=== PATIENT | male | born 1955 | race Caucasian/White ===

== ENCOUNTER 2021-03-04 15:46 | Inpatient (IN) ==
[2021-03-05] MEDS ORDERED: Dextrose Gel 15 GM/37.5 ML TUBE PO PRN ×2 (15:21)
[2021-03-05] MEDS ORDERED: D5% in Water 1,000 ML IVC PRN (15:21)
[2021-03-05] MEDS ORDERED: *HR* Dextrose 50 % in Water (Vial) 50 ML VIAL IVP PRN (15:21)
[2021-03-05] MEDS: Insulin LISPRO 300 UNITS/3 ML VIAL SUBQ SCH ×2 (17:58→22:24)
[2021-03-05] MEDS: diazePAM 2 MG TABLET PO SCH (22:23)
[2021-03-05] MEDS: Metoprolol XL (24 HR) Succ 25 MG TAB.ER.24H PO SCH (22:23)
[2021-03-05] MEDS: Gabapentin 100 MG CAPSULE PO SCH (22:23)
[2021-03-05] MEDS: QUEtiapine Fumarate 25 MG TABLET PO SCH (22:23)
[2021-03-05] MEDS: Cefdinir 300 MG CAPSULE PO SCH (22:23)
[2021-03-06 05:17] LABS: Basophils % 0.1 %; Eosinophils % 0.1 %; Hematocrit 41.8 % (37.5-50.1); Hemoglobin 13.5 g/dL (12.9-16.9); Immature Granulocytes % 0.8 % (0-4); Lymphocytes # 1.4 K/mcL (0.6-4.6); Lymphocytes % 9.3 %; Mean Corpuscular HGB Conc 32.3 g/dL (31.6-35.5); Mean Corpuscular Hemoglobin 26.9 pg (28.0-33.3); Mean Corpuscular Volume 83.4 fL (83.0-100.0); Mean Platelet Volume 12.9 fL (9.4-12.4); Monocytes # 1.2 K/mcL (0.0-1.3); Monocytes % 8.1 %; Neutrophils # 11.8 K/mcL (1.6-8.9); Platelet Count 117 K/mcL (140-400); Red Blood Count 5.01 M/mcL (4.19-5.50); Red Cell Distribution Width 15.6 % (11.5-14.5); Segmented Neutrophils % 81.6 %; White Blood Count 14.5 K/mcL (4.3-11.1)
[2021-03-06 05:33] LABS: BUN/Creatinine Ratio 33 (6-26); Blood Urea Nitrogen 41 mg/dL (8-23); Calcium 8.6 mg/dL (8.6-10.3); Carbon Dioxide 24 mEq/L (23-29); Chloride 104 mEq/L (98-107); Glucose 169 mg/dL (70-105); Osmolality,Calculated 296 (280-300); Potassium 4.3 mEq/L (3.5-5.1); Sodium 136 mEq/L (136-145); eGFR For African Americans > 60 (> 60); eGFR For Non-African Americans 59 (> 60)
[2021-03-06] MEDS: *HR* Enoxaparin 40 MG/0.4 ML SYRINGE SQ SCH (06:21)
[2021-03-06] MEDS: allopurinoL 100 MG TABLET PO SCH (08:18)
[2021-03-06] MEDS: Cholecalciferol (D-3) 1,000 UNIT (25MCG) TABLET PO SCH (08:18)
[2021-03-06] MEDS: dexAMETHasone 4 MG TABLET PO SCH (08:19)
[2021-03-06] MEDS: Multivit/Ca/Min/Fe/FA 1 TAB TABLET PO SCH (08:19)
[2021-03-06] MEDS: Cefdinir 300 MG CAPSULE PO SCH ×2 (08:19→21:34)
[2021-03-06] MEDS: Metoprolol XL (24 HR) Succ 25 MG TAB.ER.24H PO SCH ×2 (08:19→21:34)
[2021-03-06] MEDS: Finasteride 5 MG TABLET PO SCH (08:19)
[2021-03-06] MEDS: lisinopriL 20 MG TABLET PO SCH (08:19)
[2021-03-06] MEDS: QUEtiapine Fumarate 25 MG TABLET PO SCH ×2 (08:19→21:34)
[2021-03-06] MEDS: diazePAM 2 MG TABLET PO SCH ×2 (08:20→21:34)
[2021-03-06] MEDS: Insulin LISPRO 300 UNITS/3 ML VIAL SUBQ SCH ×4 (12:32→21:35)
[2021-03-06] MEDS: Gabapentin 100 MG CAPSULE PO SCH (21:34)
[2021-03-07] MEDS: *HR* Enoxaparin 40 MG/0.4 ML SYRINGE SQ SCH (04:20)
[2021-03-07] MEDS: QUEtiapine Fumarate 25 MG TABLET PO SCH ×2 (08:32→20:17)
[2021-03-07] MEDS: dexAMETHasone 4 MG TABLET PO SCH (08:32)
[2021-03-07] MEDS: Multivit/Ca/Min/Fe/FA 1 TAB TABLET PO SCH (08:32)
[2021-03-07] MEDS: Finasteride 5 MG TABLET PO SCH (08:32)
[2021-03-07] MEDS: diazePAM 2 MG TABLET PO SCH ×2 (08:32→20:17)
[2021-03-07] MEDS: Cholecalciferol (D-3) 1,000 UNIT (25MCG) TABLET PO SCH (08:32)
[2021-03-07] MEDS: allopurinoL 100 MG TABLET PO SCH (08:32)
[2021-03-07] MEDS: Cefdinir 300 MG CAPSULE PO SCH ×2 (08:32→20:17)
[2021-03-07] MEDS: lisinopriL 20 MG TABLET PO SCH (08:32)
[2021-03-07] MEDS: Metoprolol XL (24 HR) Succ 25 MG TAB.ER.24H PO SCH ×2 (08:32→20:17)
[2021-03-07] MEDS: Insulin LISPRO 300 UNITS/3 ML VIAL SUBQ SCH ×4 (08:34→20:19)
[2021-03-07] MEDS: Gabapentin 100 MG CAPSULE PO SCH (20:17)
[2021-03-08] MEDS: *HR* Enoxaparin 40 MG/0.4 ML SYRINGE SQ SCH (05:16)
[2021-03-08] MEDS: Cholecalciferol (D-3) 1,000 UNIT (25MCG) TABLET PO SCH (08:22)
[2021-03-08] MEDS: Metoprolol XL (24 HR) Succ 25 MG TAB.ER.24H PO SCH ×2 (08:22→19:58)
[2021-03-08] MEDS: dexAMETHasone 4 MG TABLET PO SCH (08:22)
[2021-03-08] MEDS: diazePAM 2 MG TABLET PO SCH ×2 (08:23→19:57)
[2021-03-08] MEDS: Finasteride 5 MG TABLET PO SCH (08:23)
[2021-03-08] MEDS: Multivit/Ca/Min/Fe/FA 1 TAB TABLET PO SCH (08:23)
[2021-03-08] MEDS: lisinopriL 20 MG TABLET PO SCH (08:23)
[2021-03-08] MEDS: allopurinoL 100 MG TABLET PO SCH (08:23)
[2021-03-08] MEDS: QUEtiapine Fumarate 25 MG TABLET PO SCH ×2 (08:23→19:57)
[2021-03-08] MEDS: Insulin LISPRO 300 UNITS/3 ML VIAL SUBQ SCH ×4 (08:24→19:58)
[2021-03-08] MEDS: Gabapentin 100 MG CAPSULE PO SCH (19:57)
[2021-03-09] MEDS: *HR* Enoxaparin 40 MG/0.4 ML SYRINGE SQ SCH (04:43)
[2021-03-09 05:18] LABS: Basophils % 0.2 %; Eosinophils % 0.1 %; Hematocrit 40.7 % (37.5-50.1); Hemoglobin 13.2 g/dL (12.9-16.9); Lymphocytes # 1.7 K/mcL (0.6-4.6); Mean Corpuscular HGB Conc 32.4 g/dL (31.6-35.5); Mean Corpuscular Hemoglobin 27.2 pg (28.0-33.3); Mean Corpuscular Volume 83.9 fL (83.0-100.0); Mean Platelet Volume 13.3 fL (9.4-12.4); Monocytes # 1.7 K/mcL (0.0-1.3); Neutrophils # 15.5 K/mcL (1.6-8.9); Red Blood Count 4.85 M/mcL (4.19-5.50); Segmented Neutrophils % 80.7 %; White Blood Count 19.2 K/mcL (4.3-11.1)
[2021-03-09 05:28] LABS: Platelet Count 119 K/mcL (140-400)
[2021-03-09 05:30] LABS: BUN/Creatinine Ratio 32 (6-26); Blood Urea Nitrogen 46 mg/dL (8-23); Calcium 8.8 mg/dL (8.6-10.3); Carbon Dioxide 23 mEq/L (23-29); Chloride 106 mEq/L (98-107); Glucose 228 mg/dL (70-105); Osmolality,Calculated 301 (280-300); Potassium 4.7 mEq/L (3.5-5.1); Sodium 136 mEq/L (136-145); eGFR For African Americans > 60 (> 60); eGFR For Non-African Americans 50 (> 60)
[2021-03-09] MEDS: Insulin LISPRO 300 UNITS/3 ML VIAL SUBQ SCH ×4 (08:22→20:01)
[2021-03-09] MEDS: Metoprolol XL (24 HR) Succ 25 MG TAB.ER.24H PO SCH ×2 (08:23→20:00)
[2021-03-09] MEDS: Cholecalciferol (D-3) 1,000 UNIT (25MCG) TABLET PO SCH (08:23)
[2021-03-09] MEDS: Multivit/Ca/Min/Fe/FA 1 TAB TABLET PO SCH (08:23)
[2021-03-09] MEDS: dexAMETHasone 4 MG TABLET PO SCH (08:23)
[2021-03-09] MEDS: diazePAM 2 MG TABLET PO SCH ×2 (08:23→20:00)
[2021-03-09] MEDS: lisinopriL 20 MG TABLET PO SCH (08:23)
[2021-03-09] MEDS: QUEtiapine Fumarate 25 MG TABLET PO SCH ×2 (08:24→19:59)
[2021-03-09] MEDS: Finasteride 5 MG TABLET PO SCH (08:24)
[2021-03-09] MEDS: allopurinoL 100 MG TABLET PO SCH (08:24)
[2021-03-09 17:43] LABS: Bilirubin,Urine Negative (Negative); Blood,Urine Negative (Negative); Clarity,Urine Clear (Clear); Color,Urine Yellow (Yellow); Glucose,Urine (UA) 500 mg/dL (Normal); Ketones,Urine Negative (Negative); Leukocyte Esterase,Urine Negative (Negative); Nitrite,Urine Negative (Negative); PH,Urine 5.5 pH Units (5.0-8.0); Protein,Urine Negative (Neg-Trace); Specific Gravity,Urine 1.025 (1.010-1.025); Urobilinogen,Urine Normal (Normal)
[2021-03-09 17:47] LABS: WBC,Urine 0-3 per hpf (0-3)
[2021-03-09 17:48] LABS: Bacteria,Urine Few per hpf (None-Few); Hyaline Casts,Urine Few per lpf (None Seen)
[2021-03-09] MEDS: Gabapentin 100 MG CAPSULE PO SCH (19:59)
[2021-03-10] MEDS: *HR* Enoxaparin 40 MG/0.4 ML SYRINGE SQ SCH (03:29)
[2021-03-10 04:48] LABS: Hematocrit 37.7 % (37.5-50.1); Hemoglobin 12.4 g/dL (12.9-16.9); Mean Corpuscular HGB Conc 32.9 g/dL (31.6-35.5); Mean Corpuscular Hemoglobin 27.4 pg (28.0-33.3); Mean Corpuscular Volume 83.4 fL (83.0-100.0); Mean Platelet Volume 12.7 fL (9.4-12.4); Platelet Count 133 K/mcL (140-400); Red Blood Count 4.52 M/mcL (4.19-5.50); White Blood Count 17.1 K/mcL (4.3-11.1)
[2021-03-10 04:59] LABS: Calcium 8.7 mg/dL (8.6-10.3); Magnesium 1.5 mg/dL (1.6-2.6); Potassium 4.6 mEq/L (3.5-5.1)
[2021-03-10] MEDS: QUEtiapine Fumarate 25 MG TABLET PO SCH ×2 (09:26→20:41)
[2021-03-10] MEDS: Multivit/Ca/Min/Fe/FA 1 TAB TABLET PO SCH (09:26)
[2021-03-10] MEDS: Finasteride 5 MG TABLET PO SCH (09:26)
[2021-03-10] MEDS: diazePAM 2 MG TABLET PO SCH ×2 (09:26→20:41)
[2021-03-10] MEDS: Metoprolol XL (24 HR) Succ 25 MG TAB.ER.24H PO SCH ×2 (09:26→20:42)
[2021-03-10] MEDS: dexAMETHasone 4 MG TABLET PO SCH (09:28)
[2021-03-10] MEDS: lisinopriL 20 MG TABLET PO SCH (09:28)
[2021-03-10] MEDS: allopurinoL 100 MG TABLET PO SCH (09:28)
[2021-03-10] MEDS: Cholecalciferol (D-3) 1,000 UNIT (25MCG) TABLET PO SCH (09:29)
[2021-03-10] MEDS: Insulin LISPRO 300 UNITS/3 ML VIAL SUBQ SCH ×4 (09:29→22:33)
[2021-03-10] MEDS: Magnesium Oxide 400 MG TABLET PO SCH (12:40)
[2021-03-10] MEDS: Gabapentin 100 MG CAPSULE PO SCH (20:41)
[2021-03-11] MEDS: *HR* Enoxaparin 40 MG/0.4 ML SYRINGE SQ SCH (06:34)
[2021-03-11] MEDS: lisinopriL 20 MG TABLET PO SCH (08:25)
[2021-03-11] MEDS: Finasteride 5 MG TABLET PO SCH (08:25)
[2021-03-11] MEDS: Magnesium Oxide 400 MG TABLET PO SCH (08:25)
[2021-03-11] MEDS: diazePAM 2 MG TABLET PO SCH ×2 (08:25→20:10)
[2021-03-11] MEDS: Multivit/Ca/Min/Fe/FA 1 TAB TABLET PO SCH (08:25)
[2021-03-11] MEDS: QUEtiapine Fumarate 25 MG TABLET PO SCH ×2 (08:25→20:09)
[2021-03-11] MEDS: Cholecalciferol (D-3) 1,000 UNIT (25MCG) TABLET PO SCH (08:25)
[2021-03-11] MEDS: Insulin LISPRO 300 UNITS/3 ML VIAL SUBQ SCH ×4 (08:26→20:10)
[2021-03-11] MEDS: Metoprolol XL (24 HR) Succ 25 MG TAB.ER.24H PO SCH ×2 (08:26→20:09)
[2021-03-11] MEDS: dexAMETHasone 4 MG TABLET PO SCH (08:26)
[2021-03-11] MEDS: allopurinoL 100 MG TABLET PO SCH (08:26)
[2021-03-11] MEDS: Gabapentin 100 MG CAPSULE PO SCH (20:09)
[2021-03-12] MEDS: *HR* Enoxaparin 40 MG/0.4 ML SYRINGE SQ SCH (06:23)
[2021-03-12] MEDS: lisinopriL 20 MG TABLET PO SCH (09:56)
[2021-03-12] MEDS: diazePAM 2 MG TABLET PO SCH ×2 (09:56→19:50)
[2021-03-12] MEDS: Cholecalciferol (D-3) 1,000 UNIT (25MCG) TABLET PO SCH (09:56)
[2021-03-12] MEDS: Metoprolol XL (24 HR) Succ 25 MG TAB.ER.24H PO SCH ×2 (09:56→19:51)
[2021-03-12] MEDS: Insulin LISPRO 300 UNITS/3 ML VIAL SUBQ SCH ×4 (09:56→19:49)
[2021-03-12] MEDS: Finasteride 5 MG TABLET PO SCH (09:56)
[2021-03-12] MEDS: QUEtiapine Fumarate 25 MG TABLET PO SCH ×2 (09:57→19:50)
[2021-03-12] MEDS: Multivit/Ca/Min/Fe/FA 1 TAB TABLET PO SCH (09:57)
[2021-03-12] MEDS: Magnesium Oxide 400 MG TABLET PO SCH (09:57)
[2021-03-12] MEDS: allopurinoL 100 MG TABLET PO SCH (09:57)
[2021-03-12] MEDS: Gabapentin 100 MG CAPSULE PO SCH (19:50)
[2021-03-13] MEDS: *HR* Enoxaparin 40 MG/0.4 ML SYRINGE SQ SCH (05:07)
[2021-03-13] MEDS: Insulin LISPRO 300 UNITS/3 ML VIAL SUBQ SCH ×4 (08:37→21:07)
[2021-03-13] MEDS: Metoprolol XL (24 HR) Succ 25 MG TAB.ER.24H PO SCH ×2 (08:38→21:07)
[2021-03-13] MEDS: Cholecalciferol (D-3) 1,000 UNIT (25MCG) TABLET PO SCH (08:38)
[2021-03-13] MEDS: Finasteride 5 MG TABLET PO SCH (08:38)
[2021-03-13] MEDS: allopurinoL 100 MG TABLET PO SCH (08:38)
[2021-03-13] MEDS: Magnesium Oxide 400 MG TABLET PO SCH (08:38)
[2021-03-13] MEDS: QUEtiapine Fumarate 25 MG TABLET PO SCH ×2 (08:39→21:06)
[2021-03-13] MEDS: diazePAM 2 MG TABLET PO SCH ×2 (08:39→21:06)
[2021-03-13] MEDS: Multivit/Ca/Min/Fe/FA 1 TAB TABLET PO SCH (08:39)
[2021-03-13] MEDS: lisinopriL 20 MG TABLET PO SCH (08:39)
[2021-03-13] MEDS: GlipiZIDE 5 MG TABLET PO SCH ×2 (12:38→16:48)
[2021-03-13] MEDS: Gabapentin 100 MG CAPSULE PO SCH (21:06)
[2021-03-14] MEDS: *HR* Enoxaparin 40 MG/0.4 ML SYRINGE SQ SCH (05:15)
[2021-03-14 06:58] LABS: Hematocrit 37.2 % (37.5-50.1); Mean Corpuscular HGB Conc 32.3 g/dL (31.6-35.5); Mean Corpuscular Hemoglobin 27.2 pg (28.0-33.3); Mean Corpuscular Volume 84.4 fL (83.0-100.0); Mean Platelet Volume 10.5 fL (9.4-12.4); Platelet Count 82 K/mcL (140-400); Red Blood Count 4.41 M/mcL (4.19-5.50); Red Cell Distribution Width 16.5 % (11.5-14.5); White Blood Count 10.7 K/mcL (4.3-11.1)
[2021-03-14 07:11] LABS: Albumin 2.7 g/dL (3.5-5.7); Albumin/Globulin Ratio 1.1 (1.1-2.2); Bilirubin,Total 0.4 mg/dL (0.3-1.0); Globulin 2.4 g/dL (2.4-3.5); Magnesium 1.7 mg/dL (1.6-2.6); Potassium 4.3 mEq/L (3.5-5.1); Total Protein 5.1 g/dL (6.4-8.9)
[2021-03-14] MEDS: Insulin LISPRO 300 UNITS/3 ML VIAL SUBQ SCH ×4 (07:55→21:29)
[2021-03-14] MEDS: lisinopriL 20 MG TABLET PO SCH (09:04)
[2021-03-14] MEDS: GlipiZIDE 5 MG TABLET PO SCH ×2 (09:04→16:34)
[2021-03-14] MEDS: Metoprolol XL (24 HR) Succ 25 MG TAB.ER.24H PO SCH ×2 (09:04→21:36)
[2021-03-14] MEDS: QUEtiapine Fumarate 25 MG TABLET PO SCH ×2 (09:04→21:35)
[2021-03-14] MEDS: diazePAM 2 MG TABLET PO SCH ×2 (09:04→21:37)
[2021-03-14] MEDS: Magnesium Oxide 400 MG TABLET PO SCH (09:04)
[2021-03-14] MEDS: Cholecalciferol (D-3) 1,000 UNIT (25MCG) TABLET PO SCH (09:04)
[2021-03-14] MEDS: Finasteride 5 MG TABLET PO SCH (09:04)
[2021-03-14] MEDS: Multivit/Ca/Min/Fe/FA 1 TAB TABLET PO SCH (09:04)
[2021-03-14] MEDS: allopurinoL 100 MG TABLET PO SCH (09:05)
[2021-03-14] MEDS: Gabapentin 100 MG CAPSULE PO SCH (21:36)
[2021-03-15] MEDS: Insulin LISPRO 300 UNITS/3 ML VIAL SUBQ SCH ×4 (08:08→20:49)
[2021-03-15] MEDS: Multivit/Ca/Min/Fe/FA 1 TAB TABLET PO SCH (08:09)
[2021-03-15] MEDS: Magnesium Oxide 400 MG TABLET PO SCH (08:09)
[2021-03-15] MEDS: GlipiZIDE 5 MG TABLET PO SCH ×2 (08:09→17:03)
[2021-03-15] MEDS: Metoprolol XL (24 HR) Succ 25 MG TAB.ER.24H PO SCH ×2 (08:09→19:35)
[2021-03-15] MEDS: Cholecalciferol (D-3) 1,000 UNIT (25MCG) TABLET PO SCH (08:09)
[2021-03-15] MEDS: allopurinoL 100 MG TABLET PO SCH (08:09)
[2021-03-15] MEDS: Finasteride 5 MG TABLET PO SCH (08:09)
[2021-03-15] MEDS: lisinopriL 20 MG TABLET PO SCH (08:09)
[2021-03-15] MEDS: diazePAM 2 MG TABLET PO SCH ×2 (08:09→19:34)
[2021-03-15] MEDS: QUEtiapine Fumarate 25 MG TABLET PO SCH ×2 (08:10→19:34)
[2021-03-15] MEDS: Nystatin POWDER 30 GM BOTTLE TP SCH ×2 (14:42→19:37)
[2021-03-15] MEDS: Gabapentin 100 MG CAPSULE PO SCH (19:34)
[2021-03-16] MEDS: Insulin LISPRO 300 UNITS/3 ML VIAL SUBQ SCH ×4 (08:11→21:50)
[2021-03-16] MEDS: lisinopriL 20 MG TABLET PO SCH (08:12)
[2021-03-16] MEDS: allopurinoL 100 MG TABLET PO SCH (08:12)
[2021-03-16] MEDS: GlipiZIDE 5 MG TABLET PO SCH ×2 (08:12→16:48)
[2021-03-16] MEDS: Multivit/Ca/Min/Fe/FA 1 TAB TABLET PO SCH (08:12)
[2021-03-16] MEDS: Magnesium Oxide 400 MG TABLET PO SCH (08:12)
[2021-03-16] MEDS: Cholecalciferol (D-3) 1,000 UNIT (25MCG) TABLET PO SCH (08:12)
[2021-03-16] MEDS: QUEtiapine Fumarate 25 MG TABLET PO SCH ×2 (08:12→22:08)
[2021-03-16] MEDS: Finasteride 5 MG TABLET PO SCH (08:12)
[2021-03-16] MEDS: Metoprolol XL (24 HR) Succ 25 MG TAB.ER.24H PO SCH ×2 (08:13→22:08)
[2021-03-16] MEDS: Nystatin POWDER 30 GM BOTTLE TP SCH ×2 (08:13→22:13)
[2021-03-16] MEDS: diazePAM 2 MG TABLET PO SCH ×2 (08:13→22:07)
[2021-03-16 09:42] LABS: Basophils % 0.1 %; Eosinophils # 0.3 K/mcL (0.0-0.6); Hematocrit 37.6 % (37.5-50.1); Hemoglobin 12.1 g/dL (12.9-16.9); Immature Granulocytes % 0.7 % (0-4); Lymphocytes # 1.3 K/mcL (0.6-4.6); Lymphocytes % 8.7 %; Mean Corpuscular HGB Conc 32.2 g/dL (31.6-35.5); Mean Corpuscular Hemoglobin 27.5 pg (28.0-33.3); Mean Corpuscular Volume 85.5 fL (83.0-100.0); Mean Platelet Volume 11.5 fL (9.4-12.4); Monocytes # 1.2 K/mcL (0.0-1.3); Monocytes % 8.4 %; Neutrophils # 11.7 K/mcL (1.6-8.9); Platelet Count 91 K/mcL (140-400); Red Cell Distribution Width 16.6 % (11.5-14.5); Segmented Neutrophils % 80.1 %; White Blood Count 14.6 K/mcL (4.3-11.1)
[2021-03-16 09:55] LABS: Calcium 8.3 mg/dL (8.6-10.3); Potassium 4.6 mEq/L (3.5-5.1)
[2021-03-16] MEDS: Doxycycline 100 MG CAPSULE PO SCH ×2 (11:44→22:10)
[2021-03-16] MEDS: Gabapentin 100 MG CAPSULE PO SCH (22:08)
[2021-03-17 05:08] LABS: Basophils % 0.1 %; Eosinophils # 0.5 K/mcL (0.0-0.6); Eosinophils % 3.3 %; Hematocrit 34.5 % (37.5-50.1); Hemoglobin 11.1 g/dL (12.9-16.9); Immature Granulocytes % 0.7 % (0-4); Lymphocytes # 2.3 K/mcL (0.6-4.6); Lymphocytes % 17.2 %; Mean Corpuscular HGB Conc 32.2 g/dL (31.6-35.5); Mean Corpuscular Hemoglobin 27.3 pg (28.0-33.3); Mean Corpuscular Volume 84.8 fL (83.0-100.0); Mean Platelet Volume 11.3 fL (9.4-12.4); Monocytes # 1.7 K/mcL (0.0-1.3); Monocytes % 12.6 %; Neutrophils # 8.9 K/mcL (1.6-8.9); Platelet Count 100 K/mcL (140-400); Red Blood Count 4.07 M/mcL (4.19-5.50); Red Cell Distribution Width 16.8 % (11.5-14.5); Segmented Neutrophils % 66.1 %; White Blood Count 13.5 K/mcL (4.3-11.1)
[2021-03-17 05:26] LABS: Potassium 4.2 mEq/L (3.5-5.1)
[2021-03-17] MEDS: Insulin LISPRO 300 UNITS/3 ML VIAL SUBQ SCH ×4 (08:04→20:30)
[2021-03-17] MEDS: Cholecalciferol (D-3) 1,000 UNIT (25MCG) TABLET PO SCH (08:06)
[2021-03-17] MEDS: GlipiZIDE 5 MG TABLET PO SCH ×2 (08:07→17:02)
[2021-03-17] MEDS: Finasteride 5 MG TABLET PO SCH (08:07)
[2021-03-17] MEDS: Nystatin POWDER 30 GM BOTTLE TP SCH ×2 (08:07→20:34)
[2021-03-17] MEDS: diazePAM 2 MG TABLET PO SCH ×2 (08:07→20:31)
[2021-03-17] MEDS: Multivit/Ca/Min/Fe/FA 1 TAB TABLET PO SCH (08:07)
[2021-03-17] MEDS: Metoprolol XL (24 HR) Succ 25 MG TAB.ER.24H PO SCH ×2 (08:07→20:32)
[2021-03-17] MEDS: allopurinoL 100 MG TABLET PO SCH (08:07)
[2021-03-17] MEDS: Magnesium Oxide 400 MG TABLET PO SCH (08:07)
[2021-03-17] MEDS: QUEtiapine Fumarate 25 MG TABLET PO SCH ×2 (08:07→20:31)
[2021-03-17] MEDS: Doxycycline 100 MG CAPSULE PO SCH (08:07)
[2021-03-17] MEDS: lisinopriL 20 MG TABLET PO SCH (08:08)
[2021-03-17] MEDS: 0.9 % Sodium Chloride 1,000 ML IVC SCH ×2 (12:15→22:18)
[2021-03-17] MEDS: Vancomycin Oral Soln 125 MG/2.5 ML UDC PO SCH ×2 (17:02→20:33)
[2021-03-17] MEDS: Gabapentin 100 MG CAPSULE PO SCH (20:32)
[2021-03-18 04:45] LABS: Basophils % 0.3 %; Eosinophils # 0.5 K/mcL (0.0-0.6); Eosinophils % 5.3 %; Hematocrit 32.9 % (37.5-50.1); Hemoglobin 10.5 g/dL (12.9-16.9); Lymphocytes % 22.4 %; Mean Corpuscular HGB Conc 31.9 g/dL (31.6-35.5); Mean Corpuscular Hemoglobin 27.1 pg (28.0-33.3); Mean Platelet Volume 11.4 fL (9.4-12.4); Monocytes # 1.2 K/mcL (0.0-1.3); Monocytes % 13.1 %; Neutrophils # 5.3 K/mcL (1.6-8.9); Platelet Count 109 K/mcL (140-400); Red Blood Count 3.87 M/mcL (4.19-5.50); Segmented Neutrophils % 57.9 %; White Blood Count 9.1 K/mcL (4.3-11.1)
[2021-03-18 05:01] LABS: Calcium 7.6 mg/dL (8.6-10.3); Potassium 4.1 mEq/L (3.5-5.1)
[2021-03-18] MEDS: Vancomycin Oral Soln 125 MG/2.5 ML UDC PO SCH ×4 (07:59→20:25)
[2021-03-18] MEDS: Insulin LISPRO 300 UNITS/3 ML VIAL SUBQ SCH ×4 (08:01→20:26)
[2021-03-18] MEDS: levoFLOXacin 500 MG TABLET PO SCH (08:02)
[2021-03-18] MEDS: Lactobacillus 1 EACH CAP.SPRINK PO SCH (08:02)
[2021-03-18] MEDS: Magnesium Oxide 400 MG TABLET PO SCH (08:02)
[2021-03-18] MEDS: QUEtiapine Fumarate 25 MG TABLET PO SCH ×2 (08:02→20:25)
[2021-03-18] MEDS: Cholecalciferol (D-3) 1,000 UNIT (25MCG) TABLET PO SCH (08:02)
[2021-03-18] MEDS: Finasteride 5 MG TABLET PO SCH (08:02)
[2021-03-18] MEDS: diazePAM 2 MG TABLET PO SCH ×2 (08:02→20:25)
[2021-03-18] MEDS: lisinopriL 20 MG TABLET PO SCH (08:02)
[2021-03-18] MEDS: GlipiZIDE 5 MG TABLET PO SCH ×2 (08:02→17:14)
[2021-03-18] MEDS: Metoprolol XL (24 HR) Succ 25 MG TAB.ER.24H PO SCH ×2 (08:03→20:25)
[2021-03-18] MEDS: Multivit/Ca/Min/Fe/FA 1 TAB TABLET PO SCH (08:03)
[2021-03-18] MEDS: Nystatin POWDER 30 GM BOTTLE TP SCH ×2 (08:03→20:26)
[2021-03-18] MEDS: allopurinoL 100 MG TABLET PO SCH (08:03)
[2021-03-18] MEDS: 0.9 % Sodium Chloride 1,000 ML IVC SCH (09:33)
[2021-03-18] MEDS: Gabapentin 100 MG CAPSULE PO SCH (20:25)
[2021-03-19 07:53] VITALS: BP 124/81
[2021-03-19] MEDS: Insulin LISPRO 300 UNITS/3 ML VIAL SUBQ SCH ×2 (07:53→12:06)
[2021-03-19] MEDS: QUEtiapine Fumarate 25 MG TABLET PO SCH (08:33)
[2021-03-19] MEDS: GlipiZIDE 5 MG TABLET PO SCH (08:33)
[2021-03-19] MEDS: lisinopriL 20 MG TABLET PO SCH (08:33)
[2021-03-19] MEDS: Cholecalciferol (D-3) 1,000 UNIT (25MCG) TABLET PO SCH (08:33)
[2021-03-19] MEDS: Finasteride 5 MG TABLET PO SCH (08:33)
[2021-03-19] MEDS: Multivit/Ca/Min/Fe/FA 1 TAB TABLET PO SCH (08:33)
[2021-03-19] MEDS: levoFLOXacin 500 MG TABLET PO SCH (08:33)
[2021-03-19] MEDS: Lactobacillus 1 EACH CAP.SPRINK PO SCH (08:33)
[2021-03-19] MEDS: allopurinoL 100 MG TABLET PO SCH (08:33)
[2021-03-19] MEDS: Magnesium Oxide 400 MG TABLET PO SCH (08:34)
[2021-03-19] MEDS: Metoprolol XL (24 HR) Succ 25 MG TAB.ER.24H PO SCH (08:34)
[2021-03-19] MEDS: Vancomycin Oral Soln 125 MG/2.5 ML UDC PO SCH ×2 (08:34→13:20)
[2021-03-19] MEDS: diazePAM 2 MG TABLET PO SCH (08:34)
[2021-03-19] MEDS: Nystatin POWDER 30 GM BOTTLE TP SCH (10:28)
== END 2021-03-19 14:10 | disposition home health service (06) | DRG 177 ==
LOC: INPGRE 03-05 14:44
PROVIDERS: ADMIT Family Medicine; ATTEND Family Medicine